=== PATIENT | female | born 1990 | race Caucasian/White ===

== ENCOUNTER 2018-12-20 22:50 | Inpatient (IN) | payer OTHER ==
[2018-12-20] MEDS ORDERED: PROMETHAZINE HCL 25 MG/1 ML VIAL IVPB ONE (23:35)
[2018-12-20] MEDS ORDERED: BUTORPHANOL TARTRATE 1 MG/ML VIAL IVPB ONE (23:35)
[2018-12-20] MEDS ORDERED: DEXTROSE 5%-LACTATED RINGERS 1,000 ML IV SCH (23:35)
[2018-12-21] MEDS ORDERED: BUTORPHANOL TARTRATE 2 MG/ML VIAL ONE (00:24)
[2018-12-21] MEDS ORDERED: PROMETHAZINE HCL 25 MG/1 ML VIAL ONE (00:24)
[2018-12-21 01:09] LABS: BASO % 0.1 % (0-2.0); EOS % 0.1 % (0-4.5); HEMATOCRIT 38.6 % (32.4-45.2); HEMOGLOBIN 12.8 GM/dL (10.7-15.3); LYMPH % 15.2 % (8-40); MCH 29.5 pg (25.7-33.7); MCHC 33.1 g/dl (32.0-36.0); MEAN CELL VOLUME 89.3 fl (80-96); MEAN PLT VOLUME 9.2 fl (7.5-11.1); MONO % 6.3 % (3.8-10.2); NEUT % 78.3 % (42.8-82.8); PLATELET COUNT 143 K/MM3 (134-434); RBC 4.32 M/mm3 (3.60-5.2); RDW 17.4 % (11.6-15.6); WHITE BLOOD COUNT 10.8 K/mm3 (4.0-10.0)
[2018-12-21 01:21] LABS: INR 0.89 (0.83-1.09); PROTHROMBIN TIME (PATIENT) 10.5 SEC (9.7-13.0)
[2018-12-21 01:26] VITALS: BMI 26.5
[2018-12-21 02:06] LABS: CALCIUM 9.2 mg/dL (8.5-10.1); CREATININE 0.6 mg/dL (0.55-1.3); POTASSIUM 3.7 mmol/L (3.5-5.1)
[2018-12-21] MEDS ORDERED: FENTANYL/BUPIVACAINE/NS/PF - PCEA - 50 ML DISP.SYRIN EP ONE ×2 (02:24→06:17)
[2018-12-21] MEDS ORDERED: NALOXONE HCL 0.4 MG/ML VIAL IVPUSH PRN (02:43)
[2018-12-21] MEDS: FENTANYL/BUPIVACAINE/NS/PF - PCEA - 50 ML DISP.SYRIN EP SCH (02:45)
[2018-12-21] MEDS ORDERED: LIDO 2%/EPI 1:200000 PRESRVFRE (20 ML SDVIAL) ONE ×2 (02:49→07:14)
[2018-12-21] MEDS ORDERED: ELECTROLYTE-148 SOLN 1,000 ML IV SCH (03:30)
[2018-12-21] MEDS ORDERED: DEXTROSE 5%-LACTATED RINGERS 1,000 ML IV SCH (04:00)
[2018-12-21] MEDS ORDERED: TUBERCULIN PPD 5 TU/0.1ML SYRINGE (IN PATIENT USE ONLY) ID ONE (05:00)
[2018-12-21] MEDS ORDERED: OXYTOCIN 20 UNITS in 0.9% NS 20 UNIT/1,000 ML INFUS.BAG IV ONE (07:01)
--- NOTE | 2018-12-21 07:52 | HP ---
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 Weeks Gestation by Dates: 39.4 ...EDC by Dates: 12/17/18 ...EDC by Sono: 12/25/18 - Past Surgical History Past Surgical History: Yes: Hernia Repair (Right inguinal) Hx Myomectomy: No Hx Transabdominal Cerclage: No - Smoking History Smoking history: Never smoked Have you smoked in the past 12 months: No - Alcohol/Substance Use Hx Alcohol Use: No History of Substance Use: reports: None - Social History Usual Living Arrangement: Yes: With Significant Other History of Recent Travel: No Home Medications - Allergies Allergies/Adverse Reactions: Allergies Allergy/AdvReac Type Severity Reaction Status Date / Time No Known Allergies Allergy Verified 12/20/18 17:09 - Home Medications Home Medications: Ambulatory Orders Iron 1 tab PO DAILY 12/20/18 Vitamin Tablet 1 tab PO DAILY 12/20/18 Family Disease History - Family Disease History Family History: Unremarkable Review of Systems - Review of Systems Constitutional: reports: No Symptoms Eyes: reports: No Symptoms HENT: reports: No Symptoms Neck: reports: No Symptoms Cardiovascular: reports: No Symptoms Respiratory: reports: No Symptoms Gastrointestinal: reports: No Symptoms Genitourinary: reports: No Symptoms, Other (labor pains) Breasts: reports: No Symptoms Reported Musculoskeletal: reports: No Symptoms Integumentary: reports: No Symptoms Neurological: reports: No Symptoms Endocrine: reports: No Symptoms Hematology/Lymphatic: reports: No Symptoms Psychiatric: reports: No Symptoms Pain Intensity: 8 Physical Exam - Maternity Vital Signs: Vital Signs Temperature 98.1 F 12/21/18 07:00 Pulse Rate 93 H 12/21/18 06:45 Respiratory Rate 20 12/21/18 06:45 Blood Pressure 112/75 12/21/18 06:45 O2 Sat by Pulse Oximetry (%) 96 12/21/18 06:45 Constitutional: Yes: Well Nourished, No Distress Eyes: Yes: WNL, Conjunctiva Clear HENT: Yes: WNL, Atraumatic, Normocephalic Neck: Yes: WNL, Supple, Trachea Midline Cardiovascular: Yes: WNL, Regular Rate and Rhythm Lungs: Clear to auscultation Breast(s): Yes: WNL - Abdominal Exam/OB Fundal Height: 39 (EFW 6.5lb) Number of Fetuses: Single Presentation: Vertex Contractions: Yes Regularity: Regular Intensity: Mod/Strong Monitor Mode: External Heart Rate (range): 150 Heart Rate Location: Midline Category: I Accelerations: Uniform Decelerations: None - Vaginal Exam/OB Vaginal Bleediing: No Dilatation (cm): 4 Effacement (%): 80 Amniotic Membrane Status: Intact Presentation: Vertex/Position Station: -3 - Physical Exam Musculoskeletal: Yes: WNL Extremities: Yes: WNL Edema: No Integumentary: Yes: WNL Deep Tendon Reflex Grade: Normal +2 ...Motor Strength: WNL Psychiatric: Yes: WNL, Alert, Oriented - Labs Lab Results: Opos/RNI/HepB neg/HIV neg/RPR neg CBC, BMP 12/21/18 00:00 12/21/18 00:00 Assessment/Plan 28yo P0 @ 39.4wks in early labor desires pain meds Admit to L&D IVF, NPO, Labs MF Status reassuring Stadol/ Phenergan for pain management will monitor labor progress adequate pelvis, EFW 6.5lb
--- NOTE | 2018-12-21 07:58 | PN ---
Progress Note, Labor Vaginal Exam #1 Labor Exam Date: 12/21/18 Labor Exam Time: 07:45 Heart Rate (range): 150 Dilatation: FD Effacement (%): 100 Amniotic Membrane Status: Ruptured Presentation: Vertex/Position Station: +3 Remarks: Category 1 FHR Patient had a top off 30 min ago She does not have any sensation to push will allow for epidural to wear off till start pushing MF status reassuring
[2018-12-21] MEDS ORDERED: BISACODYL 10 MG SUPP.RECT RC PRN (09:36)
[2018-12-21] MEDS ORDERED: METHYLERGONOVINE MALEATE 0.2 MG/1 ML AMP IM PRN (09:36)
[2018-12-21] MEDS ORDERED: BENZOCAINE 20% 57 GM BOTTLE TP PRN (09:36)
[2018-12-21] MEDS ORDERED: WITCH HAZEL 50% (TUCKS) 40 PAD/JAR PAD TP PRN (09:36)
[2018-12-21] MEDS ORDERED: BENZOCAINE 28 GM HEMORRHOIDAL OINTMENT TP PRN (09:36)
--- NOTE | 2018-12-21 09:36 | PN ---
Delivery - Delivery Vaginal Delivery: No Problems Type of Anesthesia: Epidural Episiotomy/Laceration: Midline, 2nd degree EBL (cc): 300 Delivery, Single - Stages of Labor Date 1st Stage Initiatied: 12/20/18 Time 1st Stage Initiated: 21:00 Date 2nd Stage Initiated: 12/21/18 Time 2nd Stage Initiated: 07:45 Date of Delivery: 12/21/18 Time of Delivery: 08:45 Date Placenta Delivered: 12/21/18 Time Placenta Delivered: 08:55 Placenta: Yes: Spontaneous - Condition of Infant Right Of Way Buyer/Cook Relief Present: No Infant Gender: Female Position: OA - 1 Minute Total Score: 8 5 Minutes Total Score: 9 - [place] Feeding Plan Initial Plan: Elected not to breastfeed exclusively throughout hospitalization Benefits of Exclusively reinforced: Yes Remarks - Remarks Remarks: Uncomplicated delivery of the head and shoulders
[2018-12-21] MEDS ORDERED: D5W-LR W/ 20 UNITS OXYTOCIN 20 UNIT/1,000 ML INFUS.BAG IV SCH (09:45)
[2018-12-21 09:48] LABS: VENOUS PC02 38.6 mmHg (41-51); VENOUS PH 7.39 (7.31-7.41); VENOUS PO2 30.5 mmHg (30-40)
[2018-12-21 09:49] LABS: ARTERIAL BLOOD GAS PCO2 50.8 mmHg (35-45)
[2018-12-21 09:50] LABS: ARTERIAL BLD GAS O2 SATURATION 36.6 % (95-98)
[2018-12-21 09:51] LABS: ALLENS TEST POSITIVE
[2018-12-21 09:53] LABS: ARTERIAL BLOOD GAS PO2 20.9 mmHg (80-105)
[2018-12-21] MEDS: FERROUS SO4 325 MG TABLET (FP) PO SCH ×2 (11:21→22:34)
[2018-12-21] MEDS: PRENATAL VITAMINS W/ FOLIC ACID TABLET (FP) PO SCH (11:21)
[2018-12-21] MEDS: IBUPROFEN 600 MG TABLET (FP) PO PRN ×2 (11:21→22:34)
[2018-12-21] MEDS: ACETAMINOPHEN 325 MG TABLET (FP) PO PRN ×2 (11:22→22:34)
--- NOTE | 2018-12-22 07:26 | PN ---
Post Progress Note - Subjective Subjective: Patient without acute complaints. Reports tolerating oral intake without nausea or vomiting. Ambulating without dizziness. Denies fevers or chills. Pain well controlled with oral pain medication. without difficulty. Passing flatus. Post Day: 1 Type of Delivery: Vital Signs: Vital Signs Temperature 98.2 F 12/22/18 05:46 Pulse Rate 72 12/22/18 01:34 Respiratory Rate 18 12/22/18 01:34 Blood Pressure 114/68 12/22/18 01:34 O2 Sat by Pulse Oximetry (%) 99 12/21/18 10:00 Breast Exam: Yes: Soft Uterus: Yes: Fundus Firm, Fundus @ umbilicus Abdomen/GI: Yes: Abdomen soft, Tolerating PO Lochia: Yes: Rubra Lochia, amount: Small Extremities: Yes: Calves non-tender Perineum: Yes: Laceration Activity: Ambulating - Labs Labs: CBC WBC 10.8 K/mm3 (4.0-10.0) H 12/21/18 00:00 RBC 4.32 M/mm3 (3.60-5.2) 12/21/18 00:00 Hgb 12.8 GM/dL (10.7-15.3) 12/21/18 00:00 Hct 38.6 % (32.4-45.2) 12/21/18 00:00 MCV 89.3 fl (80-96) 12/21/18 00:00 MCH 29.5 pg (25.7-33.7) 12/21/18 00:00 MCHC 33.1 g/dl (32.0-36.0) 12/21/18 00:00 RDW 17.4 % (11.6-15.6) H 12/21/18 00:00 Plt Count 143 K/MM3 (134-434) 12/21/18 00:00 MPV 9.2 fl (7.5-11.1) 12/21/18 00:00 Absolute Neuts (auto) 8.5 K/mm3 (1.5-8.0) H 12/21/18 00:00 Neutrophils % 78.3 % (42.8-82.8) 12/21/18 00:00 Lymphocytes % 15.2 % (8-40) 12/21/18 00:00 Monocytes % 6.3 % (3.8-10.2) 12/21/18 00:00 Eosinophils % 0.1 % (0-4.5) 12/21/18 00:00 Basophils % 0.1 % (0-2.0) 12/21/18 00:00 Nucleated RBC % 0 % (0-0) 12/21/18 00:00 Assessment/Plan 28yo P1 s/p Doing well VSS, Afebrile will follow CBC RH pos no need for Rhogam continue routine PP care plan d/c 12/23/18
[2018-12-22 08:01] LABS: BASO % 0.2 % (0-2.0); EOS % 0.4 % (0-4.5); HEMATOCRIT 34.3 % (32.4-45.2); HEMOGLOBIN 11.2 GM/dL (10.7-15.3); LYMPH % 22.5 % (8-40); MCH 29.4 pg (25.7-33.7); MCHC 32.5 g/dl (32.0-36.0); MEAN CELL VOLUME 90.2 fl (80-96); MEAN PLT VOLUME 8.8 fl (7.5-11.1); MONO % 5.5 % (3.8-10.2); NEUT % 71.4 % (42.8-82.8); PLATELET COUNT 124 K/MM3 (134-434); RDW 17.6 % (11.6-15.6); WHITE BLOOD COUNT 10.5 K/mm3 (4.0-10.0)
[2018-12-22] MEDS: IBUPROFEN 600 MG TABLET (FP) PO PRN ×2 (10:28→21:09)
[2018-12-22] MEDS: PRENATAL VITAMINS W/ FOLIC ACID TABLET (FP) PO SCH (10:28)
[2018-12-22] MEDS: ACETAMINOPHEN 325 MG TABLET (FP) PO PRN ×2 (10:28→21:10)
[2018-12-22] MEDS: FERROUS SO4 325 MG TABLET (FP) PO SCH ×2 (10:28→21:10)
[2018-12-22] MEDS: FENTANYL/BUPIVACAINE/NS/PF - PCEA - 50 ML DISP.SYRIN EP SCH (13:44)
[2018-12-22] MEDS ORDERED: SENNOSIDES/DOCUSATE COMBO (SENNA PLUS) TABLET (UD) PO PRN (22:00)
[2018-12-23] MEDS: FERROUS SO4 325 MG TABLET (FP) PO SCH (09:06)
[2018-12-23] MEDS: IBUPROFEN 600 MG TABLET (FP) PO PRN (09:06)
[2018-12-23] MEDS: PRENATAL VITAMINS W/ FOLIC ACID TABLET (FP) PO SCH (09:07)
[2018-12-23 09:59] VITALS: BP 127/74; PULSE 82; TEMP 99.4
--- NOTE | 2018-12-23 13:50 | DS ---
Physical Exam-CARE NURSE RN Vital Signs: Vital Signs Temperature 99.4 F 12/23/18 09:58 Pulse Rate 82 12/23/18 09:58 Respiratory Rate 18 12/23/18 09:58 Blood Pressure 127/74 12/23/18 09:58 O2 Sat by Pulse Oximetry (%) 99 12/21/18 10:00 Constitutional: Yes: Well Nourished, No Distress, Calm, Poor Hygeine Eyes: Yes: WNL HENT: Yes: WNL, Atraumatic, Normocephalic Neck: Yes: WNL Cardiovascular: Yes: WNL, Regular Rate and Rhythm Respiratory: Yes: WNL, Regular, CTA Bilaterally Gastrointestinal: Yes: WNL, Normal Bowel Sounds, Soft Pelvis: Yes: WNL Vaginal Exam: Yes: Normal ....Post : Yes: Uterus firm, Uterus non-tender Breast(s): Yes: WNL Musculoskeletal: Yes: WNL Extremities: Yes: WNL Edema: No Integumentary: Yes: WNL Neurological: Yes: WNL, Alert, Oriented ...Motor Strength: WNL Psychiatric: Yes: WNL, Alert, Oriented Labs: CBC, BMP 12/22/18 07:00 12/21/18 00:00 Delivery - Delivery Vaginal Delivery: No Problems Type of Anesthesia: Epidural Episiotomy/Laceration: Midline, 2nd degree EBL (cc): 300 Delivery, Single - Stages of Labor Date 1st Stage Initiatied: 12/20/18 Time 1st Stage Initiated: 21:00 Date 2nd Stage Initiated: 12/21/18 Time 2nd Stage Initiated: 07:45 Date of Delivery: 12/21/18 Time of Delivery: 08:45 Time Placenta Delivered: 08:55 Placenta: Yes: Spontaneous - Condition of Infant Senior Strategy Analyst/Air Tank Assembler Present: No Gender: Female Weight: 6 lb 5 oz Position: OA Total Hours ROM (Hrs/Mins): 2 hrs 55 min - 1 Minute Total Score: 8 5 Minutes Total Score: 9 - Feeding Plan Initial Plan: Elected not to breastfeed exclusively throughout hospitalization Benefits of Exclusively reinforced: Yes Discharge Summary Reason For Visit: LABOR Procedures: Principal: Normal spontaneous vaginal delivery Condition: Good - Instructions Diet, Activity, Other Instructions: Physical activity Resume your normal everyday activity as tolerated no heavy lifting or exercise until seen by your surgeon. You may walk unlimited cheo of and climb stairs. You may resume driving the car when you feel safe and comfortable behind the wheel. No sexual activity as instructed. Wound care If you have a bandage, leave it on, and keep dry for 48-72 hours. After that time discard the outer bandage. If they are tapes on the skin under the out of bandage leave them in place. They will peel off in the next 7 to 10 days. Do Not Peel them off. You may shower the day after surgery. If there are tapes present on the skin, you may shower over them. Diet There are no dietary restrictions. Eat healthy, high-fiber foods. Drink 6 to 8 glasses of liquid each day. This will assist in keeping your bowels are regular. Pain management You may take Tylenol or acetaminophen or Ibuprofen (for example, Motrin, Advil etc.) from my pain prescription medication is ordered should be taken as prescribed for moderate to severe pain. Call MD for any of the following: Severe pain not relieved by medication Fever of 101 or higher Excessive bleeding or drainage on dressing Inability to urinate Disposition: HOME - Home Medications Comprehensive Discharge Medication List: Ambulatory Orders Iron 1 tab PO DAILY 12/20/18 Vitamin Tablet 1 tab PO DAILY 12/20/18
== END 2018-12-23 14:50 | disposition home or self-care (01) | DRG 560 ==
LOC: JDEL 22:50 → JLDR 23:35 → J3W 12-21 10:39
PROVIDERS: ADMIT Obstetrics & Gynecology; ATTEND Obstetrics & Gynecology
PROC: 0KQM0ZZ Repair Perineum Muscle, Open Approach (ICD-10-PCS; principal; 2018-12-21)
PROC: 10E0XZZ Delivery of Products of Conception, External Approach (ICD-10-PCS; 2018-12-21)
DX: O70.1 Second degree perineal laceration during delivery (principal); Z3A.39 39 weeks gestation of pregnancy; Z37.0 Single live birth
CPT/HCPCS: 36415; 36600; 59409; 80048; 82803; 85025; 85610; 85730; 86593; 86850; 86900; 86901; 87389